=== PATIENT | male | born 1980 | race Caucasian/White ===

== ENCOUNTER 2023-03-27 15:35 | Emergency (ER) | payer BC, MEDICAID ==
[~2023-03-27] VITALS: Ht 170.2 cm; Wt 77.1 kg
[2023-03-27 15:54] VITALS: O2SAT 96
[2023-03-27] MEDS ORDERED: HYDROCODONE/APAP 5-325MG TABLET PO ONE (16:15)
[2023-03-27] MEDS ORDERED: HYDROCODONE/APAP 5-325MG TABLET ONE (16:17)
== END 2023-03-27 19:03 | disposition home or self-care (01) ==
LOC: ER 15:35
DX: S52.501A Unspecified fracture of the lower end of right radius, initial encounter for closed fracture (principal); W18.39XA Other fall on same level, initial encounter; Y93.89 Activity, other specified; Y92.89 Other specified places as the place of occurrence of the external cause; Y99.8 Other external cause status
CPT/HCPCS: 73090; 73110; 73130; A4663